=== PATIENT | female | born 1995 | race Hispanic/Latino ===

== ENCOUNTER 2016-04-14 19:32 | Emergency (ER) | payer BC, OTHER ==
[2016-04-14 19:55] VITALS: BP 130/71
--- NOTE | 2016-04-14 20:57 | ERNOTE ---
ENT HPI Date of Service: 04/14/16 Presenting Symptoms: other - Sore throat Time Seen by Provider: 04/14/16 20:17 Source: patient, RN notes reviewed Exam Limitations: no limitations - Immun/Allergies/Home Medications Immunizations: IMMUNIZATION HX Immunizations Up to Date Yes History of Influenza Vaccine Yes Allergies/Adverse Reactions: Allergies Allergy/AdvReac Type Severity Reaction Status Date / Time No Known Allergies Allergy Verified 03/27/14 23:30 Home Medications: HOME MEDICATIONS Vit#96/Ferrous Fum/FA [ S] 1 tab PO DAILY 03/25/14 [Last Taken 03/25/14 09:00 1 tab] Amoxicillin 875 mg PO BID #20 tablet 04/14/16 [Last Taken Unknown] - History of Present Illness Narrative: 20 y/o female ambulatory to the ED for a sore throat that began yesterday. She reports having white spots in the back of her throat. She has been taking OTC cold medications but is not having a cough or nasal congestion/drainage. Severity: Present: severe ENT Location: Present: throat Prearrival Treatment: Present: over the counter meds Associated Symptoms - ENT: Reports: fever, malaise, poor fluid intake, poor solid intake, voice change, sore throat, headache. Denies: cough, nasal congestion/drainage, facial pain/swelling, tooth pain, change in hearing, ear drainage Review of Systems - Review of Systems Constitutional: Present: See HPI EYE: Present: no symptoms reported ENT: Present: See HPI Respiratory: Present: See HPI Cardiology: Present: no symptoms reported Gastrointestinal/Abdominal: Present: nausea. Absent: vomiting, abdominal pain Genitourinary: Present: no symptoms reported Musculoskeletal: Absent: muscle pain, neck pain Skin: Absent: rash, lesions Neurological: Present: See HPI Endocrine: Present: no symptoms reported Hematologic/Lymphatic: Present: no symptoms reported Psych: Present: no symptoms reported - Patient's Past Medical History Patient History - Medical: No pertinent hx Patient History - Cardiac/Respiratory: No pertinent hx Patient History - Cancer: No Hx of Cancer Patient History - Surgical Procedures: No surgical history Patient History - Other: None LMP (females 10-50): last week - Family History Mother Family History - Medical: No pertinent hx Family History - Cardiac/Respiratory: No pertinent hx Family History - Cancer: Colon - Social History Living Situations: home Smoking Status: Never smoker Have you smoked in the past 12 months: No Do you dip or chew tobacco: No Alcohol Use: none Drug Use: none - Immunizations Immunizations Up to Date: Yes History of Influenza Vaccine: Yes Physical Exam - Physical Exam General Appearance: Present: wd/wn, alert, other - appears uncomfortable Eye Exam: Normal inspection: bilateral, PERRL: bilateral Ears, Nose, Throat: Present: hearing grossly normal, pharyngeal erythema, pharyngeal swelling, tonsillar exudate, tonsillar swelling, other - foul breath odor. Absent: abnormal TM (R), abnormal TM (L), nasal congestion, sinus pain/ drainage Neck: Present: normal inspection, supple, lymphadenopathy (R), lymphadenopathy ( L), tender lateral Respiratory: Present: no respiratory distress, normal breath sounds, no accessory muscle use, lungs clear Cardiovascular/Chest: Present: regular rate, rhythm, no murmur Gastrointestinal/Abdominal: Present: normal bowel sounds, nontender, nondistended, soft Neurological Exam: Present: alert, oriented, normal mood/affect, no motor/ sensory deficits Skin Exam: Present: normal color, warm/dry ED Progress - Results and Orders Patient's Lab Results:: I have reviewed the patient's lab results. - Vital Signs Patient's Vital Signs:: I have reviewed the patient's vital signs. Vital Signs: Vital Signs 04/14/16 19:47 Temperature 36.1 C L Pulse Rate 69 Respiratory 20 Rate Blood Pressure 130/71 O2 Sat by Pulse 100 Oximetry - Progress/Reassessment Chief Complaint: Sore Throat Progress:: Unchanged Plan - Plan Plan: Rapid strep negative but will treat as strep d/t clinical appearance Departure Clinical Impression: Acute pharyngitis Qualifiers: Pharyngitis/tonsillitis etiology: unspecified etiology Qualified Code(s): J02.9 - Acute pharyngitis, unspecified - Departure Disposition: Home self-care Condition: Good Instructions: Form - Excuse from Work, School, or Physical Activity, Sore Throat Prescriptions: Amoxicillin 875 mg PO BID #20 tablet
[2016-04-14] MEDS ORDERED: AMOXICILLIN TRIHYDRATE 250 MG CAPSULE PO ONE (20:59)
[2016-04-14] MEDS ORDERED: AMOXICILLIN TRIHYDRATE 250 MG CAPSULE ONE (21:03)
== END 2016-04-14 21:10 | disposition home or self-care (01) ==
LOC: ER 19:32
DX: J02.9 Acute pharyngitis, unspecified (principal)

== ENCOUNTER 2016-04-16 02:11 | Emergency (ER) | payer BC, OTHER ==
[2016-04-16] MEDS ORDERED: LIDOCAINE HCL 20 ML UDC MM ONE (02:54)
[2016-04-16 03:05] LABS: Hematocrit 42.9 % (37.0-47.0); Hemoglobin 14.1 gm/dL (12.5-16.0); Mean Cell Volume 81.1 fl (78-100); Mean Corpuscular Hemoglobin 26.7 pg (27-31); Mean Corpuscular Hgb Conc 32.9 g/dl (32-36); Mean Platelet Volume 10.7 fl (6.0-9.5); Platelet Count 176 K/mm3 (150-450); Red Blood Count 5.29 M/mm3 (4.2-5.4); Red Cell Distribution Width 13.2 % (11.5-14.0); White Blood Count 11.2 K/mm3 (4.0-10.5)
[2016-04-16 03:16] LABS: Total Cells Counted 100
[2016-04-16 04:10] LABS: Atypical (Reactive) Lymph 5 % (0-2); Band 3 % (0-2.0); Lymphocyte 47 % (20-51); Monocyte 14 % (0-9); Neutrophil 31 % (42-75); Neutrophil # 3.5 K/mm3 (1.3-6.0)
--- NOTE | 2016-04-16 04:11 | ERNOTE ---
ENT HPI Date of Service: 04/16/16 Presenting Symptoms: other - sore throat Time Seen by Provider: 04/16/16 02:43 Source: patient Exam Limitations: no limitations - Immun/Allergies/Home Medications Immunizations: IMMUNIZATION HX Immunizations Up to Date Yes History of Influenza Vaccine Yes Allergies/Adverse Reactions: Allergies Allergy/AdvReac Type Severity Reaction Status Date / Time No Known Allergies Allergy Verified 03/27/14 23:30 Home Medications: HOME MEDICATIONS Vit#96/Ferrous Fum/FA [ S] 1 tab PO DAILY 03/25/14 [Last Taken 03/25/14 09:00 1 tab] Amoxicillin 875 mg PO BID #20 tablet 04/14/16 [Last Taken Unknown] - History of Present Illness Narrative: Complaints of a progressively worsening sore throat. Difficulty swallowing solid food due to pain, but is able to swallow liquids. Denies any fevers, chills, shortness of breath, abdominal pain. Seen in the ED yesterday for similar symptoms and treated with Augmentin, in spite of the rapid strep being negative. PMH: none Date (Duration): 04/16/16 Severity: Present: moderate ENT Location: Present: throat Prearrival Treatment: Present: prescription meds Modifying Factors - Improves: Reports: antibiotics Modifying Factors - Worsens: Reports: other - eating Associated Symptoms - ENT: Reports: poor solid intake, voice change. Denies: headache Prior Treament: Reports: recently seen Review of Systems - Review of Systems Constitutional: Present: no symptoms reported EYE: Present: no symptoms reported ENT: Present: See HPI Respiratory: Present: no symptoms reported Cardiology: Present: no symptoms reported Gastrointestinal/Abdominal: Present: no symptoms reported Genitourinary: Present: no symptoms reported Musculoskeletal: Present: no symptoms reported Skin: Present: no symptoms reported Neurological: Present: dizziness/light-headedness - with standing Endocrine: Present: no symptoms reported Hematologic/Lymphatic: Present: no symptoms reported - Patient's Past Medical History Patient History - Medical: No pertinent hx Patient History - Cardiac/Respiratory: No pertinent hx Patient History - Cancer: No Hx of Cancer Patient History - Surgical Procedures: No surgical history Patient History - Other: None - Family History Mother Family History - Medical: No pertinent hx Family History - Cardiac/Respiratory: No pertinent hx Family History - Cancer: Colon - Social History Living Situations: home Smoking Status: Never smoker Alcohol Use: none Drug Use: none - Immunizations Immunizations Up to Date: Yes History of Influenza Vaccine: Yes Physical Exam - Physical Exam Narrative: Non toxic in appearance. General Appearance: Present: no apparent distress Eye Exam: Normal inspection: bilateral Ears, Nose, Throat: Present: pharyngeal erythema, pharyngeal swelling, tonsillar exudate, tonsillar swelling, other - Possible right tonsillar abscess. Neck: Present: normal inspection Respiratory: Present: no respiratory distress, normal breath sounds, no accessory muscle use Cardiovascular/Chest: Present: regular rate, rhythm, no murmur, normal peripheral pulses Gastrointestinal/Abdominal: Present: nondistended Back Exam: Present: normal inspection Extremity Exam: Present: normal inspection Neurological Exam: Present: alert, oriented, normal mood/affect Skin Exam: Present: normal color ED Progress - Results and Orders Patient's Lab Results:: I have reviewed the patient's lab results. - Vital Signs Patient's Vital Signs:: I have reviewed the patient's vital signs. Vital Signs: Vital Signs 04/16/16 02:17 Temperature 35.4 C L Pulse Rate 87 Respiratory 20 Rate Blood Pressure 118/72 O2 Sat by Pulse 96 Oximetry - CT/Ultrasound CT/Ultrasound Narrative: CT mild thickening right side of epiglotittis may be incidental or related to the inflammatory/infectious process involving tonsil and adenoids. Specific epiglottis is unlikely. - Progress/Reassessment Chief Complaint: Sore Throat Progress:: Improved Progress Note-Subjective: 04/16/16 06:09 Feels more comfortable after medications and IV fluids. Departure Clinical Impression: Mononucleosis - Departure Disposition: Home self-care Condition: Fair Instructions: Infectious Mononucleosis, [id number] Print Language: Singaporean Additional Instructions: Call Dr. Carroll today. Stop taking the Amoxacillin. Referrals: Rashida Carroll MD [Staff Physician] -
[2016-04-16] MEDS ORDERED: DEXAMETHASONE SOD PHOSPHATE 10 MG/ML VIAL IM ONE (05:27)
[2016-04-16] MEDS ORDERED: NORMAL SALINE 1,000 ML IV ONE (05:29)
[2016-04-16] MEDS ORDERED: KETOROLAC TROMETHAMINE 30 MG/ML VIAL IV ONE (05:34)
[2016-04-16] MEDS ORDERED: KETOROLAC TROMETHAMINE 30 MG/ML VIAL ONE (05:34)
[2016-04-16] MEDS ORDERED: DEXAMETHASONE SOD PHOSPHATE 10 MG/ML VIAL ONE (05:34)
[2016-04-16 06:41] VITALS: BP 132/84
== END 2016-04-16 07:37 | disposition home or self-care (01) ==
LOC: ER 02:11
DX: B27.90 Infectious mononucleosis, unspecified without complication (principal)

== ENCOUNTER 2016-04-20 17:59 | Emergency (ER) | payer BC, OTHER ==
[2016-04-20] MEDS ORDERED: NORMAL SALINE 1,000 ML IV ONE (20:49)
[2016-04-20] MEDS ORDERED: NALBUPHINE HCL 20 MG/ML AMPUL IV ONE (20:49)
--- NOTE | 2016-04-20 20:52 | ERNOTE ---
Medical Problem HPI - Narrative Date of Service: 04/20/16 - General Chief Complaint: General Assessment Time Seen by Provider: 04/20/16 20:25 Source: patient, family, RN notes reviewed, old records Exam Limitations: no limitations - Immun/Allergies/Home Medications Immunizations: IMMUNIZATION HX Immunizations Up to Date Yes History of Influenza Vaccine Yes Allergies/Adverse Reactions: Allergies No Known Allergies Allergy (Verified 03/27/14 23:30) Home Medications: HOME MEDICATIONS Cephalexin Monohydrate [Keflex] 500 mg PO Q8H #21 capsule 04/16/16 [Last Taken Unknown] - History of Present History Narrative: 20 y/o female ambulatory to ED for further evaluation of throat swelling d/t mono. She was seen here by my on 04/14 for a sore throat. She tested negative for strep, but her symptoms were consistent with it so she was started on amoxicillin. She did not improve and returned 2 nights later. She was then diagnosed with mono. A CT of her neck was also done. It showed significant inflammation of the epiglottis but no focal abscess. She saw her doctor for follow up today and was told to return here for a repeat CT due to concerns that she may have an abscess. She was given IM Toradol and a dose of steroids. The patient reports that her symptoms are not improving at all. She reports not being able to eat for 5 days. Date (Duration): 04/14/16 Review of Systems - Review of Systems Constitutional: Present: fever, chills, fatigue, malaise EYE: Present: no symptoms reported ENT: Present: nose congestion, sore throat, throat swelling. Absent: ear pain, nasal drainage Respiratory: Absent: shortness of breath, cough, stridor Cardiology: Present: no symptoms reported Gastrointestinal/Abdominal: Present: eating less, drinking less. Absent: nausea , vomiting Genitourinary: Absent: dysuria, decreased urinary output Musculoskeletal: Present: muscle pain, neck pain Skin: Absent: rash, lesions Neurological: Present: headache. Absent: dizziness/light-headedness Endocrine: Present: no symptoms reported Hematologic/Lymphatic: Present: no symptoms reported Psych: Present: no symptoms reported - Patient's Past Medical History Patient History - Medical: No pertinent hx Patient History - Cardiac/Respiratory: No pertinent hx Patient History - Cancer: No Hx of Cancer Patient History - Surgical Procedures: No surgical history Patient History - Other: None LMP (females 10-50): this week - Family History Mother Family History - Medical: No pertinent hx Family History - Cardiac/Respiratory: No pertinent hx Family History - Cancer: Colon - Social History Living Situations: home Abuse History: No History of abuse Psych History: No pertinent hx Smoking Status: Never smoker Have you smoked in the past 12 months: No Do you dip or chew tobacco: No Patient requests Smoking Cessation Consult: No Initiate information on Smoking Cessation: No Alcohol Use: none Drug Use: none - Immunizations Immunizations Up to Date: Yes History of Influenza Vaccine: Yes Physical Exam - Physical Exam General Appearance: Present: wd/wn, alert, no apparent distress Eye Exam: Normal inspection: bilateral Ears, Nose, Throat: Present: nasal congestion, pharyngeal erythema, pharyngeal swelling - worse on right, tonsillar exudate, tonsillar swelling - worse on right, other - extremely foul breath odor. Absent: sinus pain/drainage Neck: Present: supple, lymphadenopathy (R), lymphadenopathy (L), tender lateral Respiratory: Present: no respiratory distress, normal breath sounds, no accessory muscle use, lungs clear Cardiovascular/Chest: Present: regular rate, rhythm, no murmur Neurological Exam: Present: alert, oriented, normal mood/affect, no motor/ sensory deficits Skin Exam: Present: normal color, warm/dry ED Progress - Results and Orders Patient's Lab Results:: I have reviewed the patient's lab results. - Vital Signs Patient's Vital Signs:: I have reviewed the patient's vital signs. Vital Signs: Vital Signs 04/20/16 18:38 Temperature 37.2 C Pulse Rate 113 H Respiratory 18 Rate Blood Pressure 106/70 O2 Sat by Pulse 98 Oximetry - Progress/Reassessment Chief Complaint: General Assessment - Transfer of Care Physician Sign Out: Debra Ashley Brief History: Some improvement in pain after Nubain, IV NS bolus infusing, patient to CT by wheelchair Receiving Physician: Anne Bai Pending Results: CT/MRI results Expected Disposition: Discharge Departure - Departure Clinical Impression: Mononucleosis
[2016-04-20 21:22] LABS: Hemoglobin 14.2 gm/dL (12.5-16.0); Mean Cell Volume 80.2 fl (78-100); Mean Corpuscular Hemoglobin 26.5 pg (27-31); Mean Platelet Volume 10.2 fl (6.0-9.5); Neutrophil # 5.5 K/mm3 (1.3-6.0); Neutrophil % 47.3 % (42-75.0); Platelet Count 245 K/mm3 (150-450); Red Blood Count 5.36 M/mm3 (4.2-5.4); Red Cell Distribution Width 13.1 % (11.5-14.0); White Blood Count 11.7 K/mm3 (4.0-10.5)
[2016-04-20] MEDS ORDERED: NALBUPHINE HCL 20 MG/ML AMPUL ONE (21:35)
[2016-04-20 21:49] LABS: Albumin * 3.8 gm/dl (3.4-5.0); Anion Gap 14.8 mmol/L (6.8-13.8); BUN/Creatinine Ratio 18.5 (9.0-21.6); Bilirubin, Total 0.8 mg/dL (0.0-1.1); Ca. Corrected For Albumin 9.5 mg/dL (8.4-10.2); Calcium * 9.7 mg/dL (7.9-10.9); Carbon Dioxide 27.2 mmol/L (24-32.6); Total Protein 9.3 gm/dL (6.2-8.2)
[2016-04-20] MEDS ORDERED: DEXAMETHASONE SOD PHOSPHATE 10 MG/ML VIAL IV ONE (23:28)
[2016-04-20] MEDS ORDERED: DEXAMETHASONE SOD PHOSPHATE 10 MG/ML VIAL ONE (23:32)
[2016-04-21 01:03] VITALS: BP 113/66
== END 2016-04-20 23:56 | disposition short-term general hospital (02) ==
LOC: ER 17:59
DX: B27.90 Infectious mononucleosis, unspecified without complication (principal)